=== PATIENT | female | born 1960 | race Caucasian/White ===

== ENCOUNTER 2018-04-30 12:08 | Emergency (ER) | payer BC, SELFPAY ==
[2018-04-30 12:09] VITALS: BP 165/95; PULSE 100; RESP 16; TEMP 37.1; O2SAT 97; BMI 36.8
--- NOTE | 2018-04-30 12:51 | ED.VISSUMM ---
- ER Visit Summary Date of Service: 04/30/18 Chief Complaint: Back pain History of Present Illness: The patient is a 58 F who presents with back pain. It began about 5 days ago. It is worsened by movement relieved by certain positions. She does note that she was using elliptical the week before. She was seen in urgent care. She had a normal urinalysis there. She states they are looking for infection or blood as a sign a kidney stone. Patient denies any urinary symptoms. No numbness tingling radiation to legs fever abdominal pain urinary retention or fecal incontinence. Physical Examination: Afebrile heart rate 100 vitals otherwise unremarkable Moist mucous membranes Heart regular rate and rhythm Lungs are clear Patient does have some paraspinal lumbar tenderness on the left she has no reproducible midline tenderness Normal strength and sensation of the lower extremities 5 out of 5 dorsiflexion, plantarflexion, extensor hallucis longus, brisk capillary refill, no calf tenderness or soft tissue swelling or edema Test Results: Not indicated Emergency Department Course and Treatment: History and examination are consistent with a lumbosacral strain. I do not see evidence of serious life or limb threatening or acute surgical process such as cauda equina syndrome or epidural abscess. She was advised on supportive care. She was given a prescription for naproxen as well as [place] for as needed for breakthrough pain. She was advised she may benefit from physical therapy. She was advised to follow-up with her primary care physician. She understands to return for new or worsening symptoms. She was discharged. Treatment Plan: [] Disposition: Discharge Impression: Lumbosacral strain This note was generated with [employer] dictation software. It may contain incorrect words, spelling, and punctuation that were not noted in review of the chart prior to signing ED Disposition - Plan for ED Patient: Chief Complaint: Back Referrals: [facility] Doctor,Out of [Primary Care Provider] -
--- NOTE | 2018-04-30 12:54 | ED.DCSUM_ITS ---
- ER Visit Summary Date of Service: 04/30/18 Chief Complaint: Back pain History of Present Illness: The patient is a 58 F who presents with back pain. It began about 5 days ago. It is worsened by movement relieved by certain positions. She does note that she was using elliptical the week before. She was seen in urgent care. She had a normal urinalysis there. She states they are looking for infection or blood as a sign a kidney stone. Patient denies any urinary symptoms. No numbness tingling radiation to legs fever abdominal pain urinary retention or fecal incontinence. Physical Examination: Afebrile heart rate 100 vitals otherwise unremarkable Moist mucous membranes Heart regular rate and rhythm Lungs are clear Patient does have some paraspinal lumbar tenderness on the left she has no reproducible midline tenderness Normal strength and sensation of the lower extremities 5 out of 5 dorsiflexion, plantarflexion, extensor hallucis longus, brisk capillary refill, no calf tenderness or soft tissue swelling or edema Test Results: Not indicated Emergency Department Course and Treatment: History and examination are consistent with a lumbosacral strain. I do not see evidence of serious life or limb threatening or acute surgical process such as cauda equina syndrome or epidural abscess. She was advised on supportive care. She was given a prescription for naproxen as well as [place] for as needed for breakthrough pain. She was advised she may benefit from physical therapy. She was advised to follow-up with her primary care physician. She understands to return for new or worsening symptoms. She was discharged. Treatment Plan: [] Disposition: Discharge Impression: Lumbosacral strain This note was generated with [employer] dictation software. It may contain incorrect words, spelling, and punctuation that were not noted in review of the chart prior to signing ED Disposition - Plan for ED Patient: Chief Complaint: Back Referrals: [facility] Doctor,Out of [Primary Care Provider] -
--- NOTE | 2018-04-30 12:55 | DCINST.ED_ITS ---
ED Disposition - Plan for ED Patient: Chief Complaint: Back Instructions: ED Sprain Strain Lumbar Prescriptions: Hydrocodone Bitart/Apap 5-325 [[place] 5MG-325MG] 1 tab PO Q6H PRN PRN 3 Days #10 tab PRN Reason: Pain Naproxen [Naprosyn] 500 mg PO BID #20 tab Referrals: [facility],Out of [Primary Care Provider] -
== END 2018-04-30 13:14 | disposition home or self-care (01) ==
LOC: ED 12:59
PROVIDERS: Emergency Provider Emergency Medicine
DX: S39.012D Strain of muscle, fascia and tendon of lower back, subsequent encounter (principal); X58.XXXD Exposure to other specified factors, subsequent encounter
CPT/HCPCS: 99282

== ENCOUNTER 2019-03-08 13:04 | Outpatient (RCR) | payer OTHER, SELFPAY | END 2019-04-04 23:59 | LOC: NS 13:04 | DX: E66.9 Obesity, unspecified (principal); Z71.3 Dietary counseling and surveillance | CPT/HCPCS: 97802 ==

== ENCOUNTER 2019-04-27 13:00 | Outpatient (RCR) | payer OTHER, SELFPAY | END 2019-05-05 23:59 | LOC: NS 13:00 | DX: E66.9 Obesity, unspecified (principal); Z71.3 Dietary counseling and surveillance | CPT/HCPCS: 97803 ==

== ENCOUNTER 2019-05-25 12:30 | Outpatient (RCR) | payer OTHER, SELFPAY | END 2019-06-05 23:59 | LOC: NS 12:30 | DX: E66.9 Obesity, unspecified (principal); Z71.3 Dietary counseling and surveillance | CPT/HCPCS: 97803 ==

== ENCOUNTER 2019-06-29 12:17 | Outpatient (RCR) | payer OTHER, SELFPAY | END 2019-07-05 23:59 | LOC: NS 12:17 | DX: E66.9 Obesity, unspecified (principal); Z71.3 Dietary counseling and surveillance | CPT/HCPCS: 97803 ==

== ENCOUNTER 2019-07-20 11:53 | Outpatient (RCR) | payer OTHER, SELFPAY | END 2019-08-05 23:59 | LOC: NS 11:53 | DX: E66.9 Obesity, unspecified (principal); Z71.3 Dietary counseling and surveillance | CPT/HCPCS: 97803 ==

== ENCOUNTER 2019-08-23 13:58 | Outpatient (RCR) | payer OTHER, SELFPAY | END 2019-09-04 23:59 | LOC: NS 13:58 | DX: Z71.3 Dietary counseling and surveillance (principal); E66.9 Obesity, unspecified | CPT/HCPCS: 97803 ==

== ENCOUNTER 2019-08-30 09:30 | Emergency (ER) | payer OTHER, SELFPAY ==
[2019-08-30 09:31] VITALS: BP 162/84; PULSE 96; RESP 20; TEMP 37.1; O2SAT 97; BMI 36.6
--- NOTE | 2019-08-30 09:57 | RAD_ITS ---
STUDY: X-RAY - RIGHT HAND REASON FOR EXAM: Female, 59 years old. TECHNIQUE: 3 view(s) of the hand. COMPARISON: None. FINDINGS: Normal radiocarpal articulation. Normal distal radioulnar joint. Normal visualized carpal bones. Normal carpal articulations Normal carpometacarpal articulation of the thumb. Normal second through fifth carpometacarpal joints. Normal metacarpi. Normal metacarpophalangeal joint of the thumb. Normal interphalangeal joint of the thumb. Normal proximal and distal phalanges of the thumb. Normal metacarpophalangeal joints of the second through fifth fingers. Normal proximal and distal interphalangeal joints of the second through fifth fingers. Normal phalanges of the second through fifth fingers. The soft tissue structures are unremarkable. RAD/Hand Min 3 Views IMPRESSION: Normal x-ray examination of the hand. Electronically Signed: Adam Aaron, at 10:46 EST Tel , Service support ,
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
[2019-08-30] MEDS: Ibuprofen 600 MG Tablet PO (10:28)
[2019-08-30 11:07] VITALS: RESP 18
== END 2019-08-30 11:08 | disposition home or self-care (01) ==
PROVIDERS: Emergency Provider Emergency Medicine
DX: S29.012A Strain of muscle and tendon of back wall of thorax, initial encounter (principal); V43.52XA Car driver injured in collision with other type car in traffic accident, initial encounter; S80.12XA Contusion of left lower leg, initial encounter; S60.221A Contusion of right hand, initial encounter; Z79.899 Other long term (current) drug therapy; E78.5 Hyperlipidemia, unspecified
CPT/HCPCS: 73130; 99284

== ENCOUNTER 2019-10-26 10:00 | Outpatient (RCR) | payer OTHER, SELFPAY | END 2019-11-05 23:59 | LOC: NS 10:00 | DX: Z71.3 Dietary counseling and surveillance (principal); E66.9 Obesity, unspecified | CPT/HCPCS: 97803 ==

== ENCOUNTER 2019-11-23 08:45 | Outpatient (RCR) | payer OTHER, SELFPAY | END 2019-12-04 23:59 | LOC: NS 08:45 | DX: Z71.3 Dietary counseling and surveillance (principal); E66.9 Obesity, unspecified | CPT/HCPCS: 97803 ==

== ENCOUNTER 2019-12-13 08:34 | Outpatient (RCR) | payer OTHER, SELFPAY | END 2020-01-04 23:59 | LOC: NS 08:34 | DX: Z71.3 Dietary counseling and surveillance (principal); E66.9 Obesity, unspecified | CPT/HCPCS: 97803 ==

== ENCOUNTER 2020-04-18 08:24 | Outpatient (RCR) | payer OTHER, SELFPAY | END 2020-05-05 23:59 | LOC: NS 08:24 | DX: Z71.3 Dietary counseling and surveillance (principal); E66.9 Obesity, unspecified | CPT/HCPCS: 97803 ==

== ENCOUNTER 2020-05-16 08:46 | Outpatient (RCR) | payer OTHER, SELFPAY | END 2020-06-05 23:59 | LOC: NS 08:46 | DX: Z71.3 Dietary counseling and surveillance (principal); E66.9 Obesity, unspecified | CPT/HCPCS: 97803 ==

== ENCOUNTER 2020-06-27 10:49 | Outpatient (RCR) | payer OTHER, SELFPAY | END 2020-07-05 23:59 | LOC: NS 10:49 | DX: Z71.3 Dietary counseling and surveillance (principal); E66.9 Obesity, unspecified | CPT/HCPCS: 97803 ==

== ENCOUNTER 2020-08-22 14:30 | Outpatient (RCR) | payer OTHER, SELFPAY | END 2020-09-04 23:59 | LOC: NS 14:30 | DX: Z71.3 Dietary counseling and surveillance (principal); E66.9 Obesity, unspecified | CPT/HCPCS: 97803 ==

== ENCOUNTER 2020-09-19 08:34 | Outpatient (RCR) | payer OTHER, SELFPAY | END 2020-10-05 23:59 | LOC: NS 08:34 | DX: Z71.3 Dietary counseling and surveillance (principal); E66.9 Obesity, unspecified | CPT/HCPCS: 97803 ==

== ENCOUNTER 2020-10-31 18:00 | Outpatient (RCR) | payer SELFPAY ==
[2020-10-17 19:11] VITALS: BMI 35.6
[2020-10-30 16:33] VITALS: BMI 35.4
[2020-10-31 19:30] VITALS: BMI 35.5
== END 2020-11-05 23:59 ==
LOC: NS 18:00
DX: Z71.3 Dietary counseling and surveillance (principal); E66.9 Obesity, unspecified
CPT/HCPCS: G9873; G9891

== ENCOUNTER 2020-11-28 18:00 | Outpatient (RCR) | payer SELFPAY ==
[2020-11-07 19:18] VITALS: BMI 35.4
[2020-11-14 19:19] VITALS: BMI 35.4
[2020-11-21 19:00] VITALS: BMI 35.3
[2020-11-28 19:48] VITALS: BMI 35.2
== END 2020-12-03 23:59 ==
LOC: NS 18:00
DX: Z71.3 Dietary counseling and surveillance (principal); E66.9 Obesity, unspecified
CPT/HCPCS: G9874; G9891

== ENCOUNTER 2020-12-12 18:00 | Outpatient (RCR) | payer SELFPAY ==
[2020-12-12 19:27] VITALS: BMI 35.4
[2020-12-26 19:35] VITALS: BMI 35.5
== END 2021-01-03 23:59 ==
LOC: NS 18:00
DX: Z71.3 Dietary counseling and surveillance (principal); E66.9 Obesity, unspecified
CPT/HCPCS: G9891

== ENCOUNTER 2020-12-14 16:02 | Outpatient (RCR) | payer OTHER, SELFPAY ==
[2020-12-14] MEDS: COVID-19 VACC, MRNA(PFIZER)/PF 30 MCG/0.3 ML SYRINGE IM (17:34)
[2021-01-04] MEDS: COVID-19 VACC, MRNA(PFIZER)/PF 30 MCG/0.3 ML SYRINGE IM (17:28)
== END 2021-03-13 23:59 ==
LOC: IMMUN 16:02
PROVIDERS: PCP Internal Medicine; Visit Provider Family Medicine
DX: Z23 Encounter for immunization (principal)
CPT/HCPCS: 0001A; 0002A; 91300

== ENCOUNTER 2021-01-23 18:00 | Outpatient (RCR) | payer OTHER, SELFPAY ==
[2021-01-10 13:21] VITALS: BMI 35.3
[2021-01-24 20:00] VITALS: BMI 35.6
== END 2021-02-02 23:59 ==
LOC: NS 18:00
PROVIDERS: PCP Internal Medicine
DX: Z71.3 Dietary counseling and surveillance (principal); E66.9 Obesity, unspecified
CPT/HCPCS: G9891

== ENCOUNTER 2021-02-06 18:00 | Outpatient (RCR) | payer OTHER, SELFPAY ==
[2021-02-06 20:24] VITALS: BMI 35.3
== END 2021-03-05 23:59 ==
LOC: NS 18:00
PROVIDERS: PCP Internal Medicine
DX: Z71.3 Dietary counseling and surveillance (principal); E66.9 Obesity, unspecified; Z68.35 Body mass index [BMI] 35.0-35.9, adult
CPT/HCPCS: G9891

== ENCOUNTER 2021-04-03 18:00 | Outpatient (RCR) | payer OTHER, SELFPAY ==
[2021-03-06 19:50] VITALS: BMI 35.4
[2021-03-21 13:34] VITALS: BMI 35.4
[2021-04-03 20:07] VITALS: BMI 35.9
== END 2021-04-04 23:59 ==
LOC: NS 18:00
PROVIDERS: PCP Internal Medicine
DX: Z71.3 Dietary counseling and surveillance (principal); E66.9 Obesity, unspecified; Z68.35 Body mass index [BMI] 35.0-35.9, adult
CPT/HCPCS: G9891

== ENCOUNTER 2021-04-24 18:00 | Outpatient (RCR) | payer OTHER, SELFPAY ==
[2021-04-23 18:40] VITALS: BMI 36.4
[2021-04-24 19:54] VITALS: BMI 36.3
== END 2021-05-05 23:59 ==
LOC: NS 18:00
PROVIDERS: PCP Internal Medicine
DX: Z71.3 Dietary counseling and surveillance (principal); E66.9 Obesity, unspecified; Z68.36 Body mass index [BMI] 36.0-36.9, adult
CPT/HCPCS: G9891

== ENCOUNTER 2021-06-05 18:00 | Outpatient (RCR) | payer OTHER, SELFPAY ==
[2021-05-09 10:02] VITALS: BMI 36.3
[2021-05-23 10:06] VITALS: BMI 36.2
[2021-06-05 19:39] VITALS: BMI 36.2
== END 2021-06-05 23:59 ==
LOC: NS 18:00
PROVIDERS: PCP Internal Medicine
DX: Z71.3 Dietary counseling and surveillance (principal); E66.9 Obesity, unspecified; Z68.36 Body mass index [BMI] 36.0-36.9, adult
CPT/HCPCS: G9891

== ENCOUNTER 2021-07-03 18:00 | Outpatient (RCR) | payer OTHER, SELFPAY ==
[2021-06-06 00:24] VITALS: BMI 36.2
[2021-07-04 13:05] VITALS: BMI 36.8
== END 2021-07-05 23:59 ==
LOC: NS 18:00
PROVIDERS: PCP Internal Medicine
DX: Z71.3 Dietary counseling and surveillance (principal); E66.9 Obesity, unspecified; Z68.36 Body mass index [BMI] 36.0-36.9, adult
CPT/HCPCS: G9891

== ENCOUNTER 2021-07-31 18:00 | Outpatient (RCR) | payer OTHER, SELFPAY ==
[2021-07-06 00:18] VITALS: BMI 36.8
[2021-07-10 11:06] VITALS: BMI 36.8
[2021-07-18 13:06] VITALS: BMI 36.2
== END 2021-08-05 23:59 ==
LOC: NS 18:00
PROVIDERS: PCP Internal Medicine
DX: Z71.3 Dietary counseling and surveillance (principal); E66.9 Obesity, unspecified; Z68.36 Body mass index [BMI] 36.0-36.9, adult
CPT/HCPCS: G9891

== ENCOUNTER 2021-08-28 18:00 | Outpatient (RCR) | payer SELFPAY ==
[2021-08-06 00:15] VITALS: BMI 36.2
[2021-08-07 14:33] VITALS: BMI 36.8
[2021-08-14 19:13] VITALS: BMI 36.9
== END 2021-09-04 23:59 ==
LOC: NS 18:00
PROVIDERS: PCP Internal Medicine
DX: Z71.3 Dietary counseling and surveillance (principal); E66.9 Obesity, unspecified; Z68.36 Body mass index [BMI] 36.0-36.9, adult
CPT/HCPCS: G9891

== ENCOUNTER 2021-09-25 18:00 | Outpatient (RCR) | payer SELFPAY ==
[2021-09-05 00:20] VITALS: BMI 36.9
[2021-09-11 19:30] VITALS: BMI 36.8
== END 2021-10-05 23:59 ==
LOC: NS 18:00
PROVIDERS: PCP Internal Medicine
DX: Z71.3 Dietary counseling and surveillance (principal); E66.9 Obesity, unspecified; Z68.36 Body mass index [BMI] 36.0-36.9, adult
CPT/HCPCS: G9891

== ENCOUNTER 2023-07-29 09:48 | Emergency (ER) | payer OTHER, SELFPAY ==
[2023-07-29 09:49] VITALS: BP 145/112; PULSE 80; RESP 18; TEMP 36.6; O2SAT 99
--- NOTE | 2023-07-29 10:42 | CT_ITS ---
STUDY: CT ABDOMEN AND PELVIS WITH CONTRAST REASON FOR EXAM: Female, 63 years old. RLQ pain. Nausea. Hernia. RADIATION DOSAGE (If Supplied By Facility): CTDIvol = ( 12.10 ) mGy, DLP = ( 1219.18 ) mGycm TECHNIQUE: Transaxial images were obtained from the dome of the diaphragm to the symphysis pubis without oral contrast. IV 100mL Isovue-370 was administered. Sagittal and coronal images were reconstructed. Individualized dose optimization techniques were used for this CT. COMPARISON: None. FINDINGS: Minimal increased linear markings at the lung bases suggestive of bibasilar atelectasis. The visualized portions of the heart are within normal limits. There is decreased attenuation of the liver consistent with steatosis. Gallstones are seen in the neck of the gallbladder. Normal spleen. Normal pancreas. Normal bilateral adrenal glands. Normal right kidney. Normal left kidney. Normal visualized stomach. Normal small intestine. Normal colon. The appendix is visualized and appears normal. There is scattered atherosclerotic calcification of the abdominal aorta, without a demonstrated aneurysm. Normal inferior vena cava. Normal retroperitoneum. Normal urinary bladder. Enlarged heterogeneous appearance of the uterus suggestive of a fibroid uterus. There is a small umbilical hernia containing fat. There are degenerative changes of the visualized lumbar spine. Dextroscoliosis. CT/Abdomen/Pelvis W IV Cont ONLY IMPRESSION: Gallstones in the neck of the gallbladder. Fatty infiltration of the liver. Heterogeneous enlargement of the uterus suggestive of fibroid change. Electronically Signed: Storm Hernandez MD at 13:33 EDT ,
--- NOTE | 2023-07-29 10:43 | EDS_ITS ---
HPI HPI - GI History of Present Illness Chief Complaint: Abd Pain Narrative Narrative: 63-year-old female past medical history of umbilical hernia, presents with right lower quadrant to pelvic pain that began this morning. They note that she has been performing more activity and bending, which they think may have aggravated her hernia. She was nauseated this morning when her symptoms began at around 6:00, 4-1/2 hours ago. She has not vomited, and has had 2 bowel movements today. She denies any dysuria or hematuria. Her pain is worse with sitting up and standing. She relates history that a few years ago, she talked to Dr. Larson with [facility] surgery about possible hernia repair of her umbilical hernia, but they decided against it because it was during COVID, and more of an elective surgery. She denies any vaginal discharge or bleeding. PFSH PFSH Home Medications rosuvastatin 5 mg tablet 5 mg PO MOWEFR 04/30/18 [History Last Taken Unknown] Allergy/AdvReac Type Severity Reaction Status Date / Time No Known Allergies Allergy Verified 07/29/23 09:51 Social History Smoking Status: Never smoker ROS ROS ED ROS Narrative Constitutional: No fever, no chills. HEENT: No sore throat. No neck pain. No loss of vision. No rhinorrhea. Cardiovascular: No chest pain. No palpitations. No pedal edema. Respiratory: No cough, no shortness of breath. Abdominal: Right lower quadrant to right pelvic abdominal pain. Positive nausea. No vomiting. Problems with bowel movements, no diarrhea. Genitourinary: No dysuria. No hematuria. Musculoskeletal: No myalgias. No arthralgias. Neurologic: No headaches. No dizziness. No lightheadedness. Skin: No rash. No change in color. Psychiatric: No depression. No anxiety. EXAM Physical Exam Narrative Exam Narrative: Afebrile. Vital signs noted. HEENT: Normocephalic. Atraumatic. PERRL, EOMI. Neck soft and supple. No point tenderness or step off. Cardiovascular: Regular rate and rhythm. No murmurs, rubs, or gallops appreciated. Respiratory: No tachypnea. Lungs clear to auscultation bilaterally. Gastrointestinal: Abdomen soft, mild tenderness to palpation in right lower quadrant to right pelvis with normoactive bowel sounds. No rebound or guarding. Umbilicus hernia, soft, easily reduced, but then immediately returns. Neurological: Awake. Alert. Nonfocal, nonlateralizing. Skin: No rash. Normal color. No pallor. Musculoskeletal: No pedal edema. Full range of motion extremities. Const Vital Signs: 07/29/23 09:49 07/29/23 12:24 07/29/23 13:53 Temperature 97.9 F Temperature Source Temporal Pulse Rate 80 52 L 56 L Respiratory Rate 18 18 18 Blood Pressure 145/112 H 136/47 H 137/63 H Blood Pressure Mean 123 76 87 Pulse Ox 99 98 96 Oxygen Delivery Method Room Air Room Air MDM MDM MDM Narrative Medical decision making narrative: The differential diagnosis is appendicitis versus incarcerated hernia versus ovarian cyst versus inguinal hernia. However, she has no pain with movement of her right leg and there is no large mass palpated in the inguinal canal. She was administered morphine and ondansetron and a bolus of normal saline 1 L intravenously. I do feel CT imaging is indicated. I will obtain a CBC, CMP, and urinalysis as well to look for any UTI or sign of infection. I reviewed her laboratory work from today and she has a normal white count of 6.3, hemoglobin normal at 14.0, the 2.7, platelet count normal at 270. Review of her CMP shows chloride slightly elevated at 111 which I think is nonspecific, normal sodium of 141, potassium normal at 4.3, glucose is appropriately elevated at 118 with an anion gap low at 2. LFTs are normal, alk phos is normal at 70, AST 19 and ALT 36. Urinalysis is negative for infection. I do not feel antibiotics are indicated. I reviewed the CT imaging and the radiology report for the CT of the abdomen pelvis with IV contrast. She does have Regenia's thickening of the uterus consistent with fibrous disease, and gallstones in the neck of the bladder. However, I have no concern for cholecystitis or gallstone pancreatitis as she is not having any vomiting, and she has no pain in the right upper quadrant. All of her pain is lower. I did see the umbilical hernia which contained fat on her CT imaging. For analgesia, she excepted 2 mg of morphine and showed improvement. Suspect that her IV may have infiltrated so it was removed, and she declined further analgesics. As far as oral analgesics are concerned, she states she prefers to take Motrin and Tylenol alternating. Additionally, she declined pelvic examination and/or ultrasound, and there was no remark of an enlarged ovary on the right. The appendix was visualized and is normal. 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 Additionally, she feels well enough to be discharged and I do not feel she requires observation at this time. Return instructions to the emergency department were reviewed. Disposition is discharged home in stable condition. History & Record Review Discussion w/independent historian: Patient and Family Additional record(s) reviewed:: Prior ED visit and Prior labs Lab Data Attestation: I reviewed the patient's lab results. Labs: Laboratory Results - last 24 hr 07/29/23 07/29/23 11:40 11:52 WBC 6.3 RBC 4.53 Hgb 14.0 Hct 42.7 MCV 94.3 MCH 30.9 MCHC 32.8 RDW Std Deviation 46.8 H RDW Coeff of Baudilio 13.5 Plt Count 270 MPV 10.3 Immature Gran % (Auto) 0.500 Neut % (Auto) 70.0 Lymph % (Auto) 21.0 [place] % (Auto) 6.1 Eos % (Auto) 1.6 Baso % (Auto) 0.8 Absolute Neuts (auto) 4.4 Absolute Lymphs (auto) 1.32 Nucleated RBC % 0 Sodium 141 Potassium 4.3 Chloride 111 H Carbon Dioxide 28.0 Anion Gap 2 L BUN 15 Creatinine 0.76 Estim Creat Clear Calc 70.93 Est GFR (MDRD) Af Amer 99 Est GFR (MDRD) Non-Af 82 BUN/Creatinine Ratio 19.8 Glucose 118 H Calcium 8.9 Total Bilirubin 0.40 AST 19 ALT 36 Alkaline Phosphatase 70 Total Protein 7.2 Albumin 3.9 Globulin 3.3 Albumin/Globulin Ratio 1.2 Urine Color Yellow Urine Clarity Clear Urine pH 7.0 Ur Specific [place] 1.015 Urine Protein 15 H Urine Glucose (UA) Normal Urine Ketones Negative Urine Occult Blood Negative Urine Nitrite Negative Urine Bilirubin Negative Urine Urobilinogen Normal Ur Leukocyte Esterase 25 H Urine RBC 0 SEEN Urine WBC 0-5 SEEN Ur Squamous Epith Cells 5-10 SEEN Urine Bacteria 1+ Urine Mucus 0 SEEN Radiography Diagnostic Testing: Clinical Impression(s) from Imaging Studies Abdomen/Pelvis CT 07/29/23 10:42 IMPRESSION: Gallstones in the neck of the gallbladder. Fatty infiltration of the liver. Heterogeneous enlargement of the uterus suggestive of fibroid change. Electronically Signed: Storm Hernandez MD at 13:33 EDT , Discharge Plan Triage Chief Complaint: Abd Pain ED Provider: Konrad Arnold Dx/Rx/DC Orders Clinical Impression: Uterine fibroid, Gallstones, Abdominal pain, Nausea Instructions: ED Abdominal Pain Unkn Cause Fem, ED Pain, Acute, Uncertain Cause, ED Pelvic Pain, Unknown Cause Prescriptions: No Action rosuvastatin 5 MG tablet 5 mg PO MOWEFR Patient Comments: take 1 tablet by mouth once daily Primary Care Provider: KONRAD MENDEZ Referrals: KONRAD MENDEZ [employer] [Primary Care Provider] - Activity Restrictions/Additional Instructions: Follow-up with an PATIENT RELATIONS SPECIALIST regarding your uterine fibroids. You may alternate between canal and Advil as needed for pain. Return with increasing pain, fever, vomiting, new or worsening symptoms. Disposition Disposition: Home, Self Care Discharge Date/Time: 07/29/23 13:59
[2023-07-29 10:53] VITALS: BMI 39.7
[2023-07-29 11:52] LABS: Absolute Lymphocyte Count 1.32 X10^3/uL (0.83-4.51); Absolute Neutrophil Count 4.4 X10^3/uL (2.0-7.7); Basophil# 0.05 X10^3/uL; Basophil% 0.8 % (0-1); Eosinophils% 1.6 % (0-5); Hematocrit 42.7 % (37-47); Lymphocyte # 1.32 X10^3/ul (0.83-4.51); Mean Corp Hgb Conc 32.8 g/dL (32-36); Mean Corpuscular Hgb 30.9 pg (27.0-32.0); Mean Corpuscular Volume 94.3 fL (81-99); Mean Platelet Vol. 10.3 fl (6.2-12.0); Monocyte# 0.38 X10^3/uL; Monocyte% 6.1 % (0-10); NRBC Flagged by Analyzer 0 % (0-5); Platelet Count 270 K/mm3 (150-450); RBC Distribution Width CV 13.5 % (11.6-14.6); RBC Distribution Width SD 46.8 fl (35.1-43.9); Red Blood Count 4.53 M/mm3 (4.2-5.4); White Blood Count 6.3 K/mm3 (4.4-11.0)
[2023-07-29] MEDS: Ondansetron 4 MG/2 ML Vial IV (11:53)
[2023-07-29] MEDS: 0.9% Normal Saline (1000mL) 1,000 ML 1000 ML IV (11:53)
--- NOTE | 2023-07-29 11:57 | NURSING ---
NO LIVING WILL, POWER OF CASE WORK AIDE
[2023-07-29 11:58] LABS: Mucous, Urine 0 SEEN /hpf (<or=2+); Red Blood Cells-Urine 0 SEEN /hpf (0-5)
[2023-07-29] MEDS: Morphine 2 MG/ML Syringe IV (12:06)
[2023-07-29 12:07] LABS: Color, Urine Yellow (Yellow); Glucose, Dipstick Normal (Normal); Ketone-Dipstick Negative (Negative); Leukocyte Esterase-Dipstick 25 /ul (Negative); Nitrite-Dipstick Negative (Negative); Occult Blood-Urine Negative /ul (Negative); Protein-Dipstick 15 mg/dl (Negative); Specific Gravity, Urine 1.015 (1.002-1.030); Urine Bilirubin Dipstick Negative (Negative); Urine Clarity Clear (Clear); Urine Urobilinogen Normal (Normal)
[2023-07-29 12:12] LABS: ALB/GLOB Ratio 1.2 RATIO (0.9-2.4); AST(SGOT) 19 U/L (15-37); Alanine Aminotransfer ALT/SGPT 36 U/L (13-56); Albumin, Serum 3.9 g/dL (3.2-5.0); Alkaline Phosphatase 70 U/L (45-117); Anion Gap 2 (5-15); BUN 15 mg/dL (7-18); BUN/Creat Ratio 19.8 RATIO (10-20); Calcium,Total 8.9 mg/dL (8.5-10.1); Chloride 111 mmol/L (98-107); Creatinine, Serum 0.76 mg/dL (0.55-1.02); EST Glomerular Filtration Rate 82 mL/min (>60); Est Glom Filt Rate - Afr Amer 99 mL/min (>60); Estimated Creatinine Clearance 70.93 ml/min; Globulin 3.3 g/dL (2.2-4.2); Glucose 118 mg/dL (74-106); Potassium 4.3 mmol/L (3.5-5.1); Protein, Total 7.2 g/dL (6.4-8.2); Sodium Level 141 mmol/L (136-145)
[2023-07-29 12:14] LABS: Bacteria 1+ /hpf (None Seen); Squamous Epithelial Cells - UA 5-10 SEEN /hpf (5-10); White Blood Cells 0-5 SEEN /hpf (0-5)
[2023-07-29 12:24] VITALS: BP 136/47; PULSE 52; RESP 18; O2SAT 98
--- NOTE | 2023-07-29 13:42 | ED.RN ---
Addendum entered by Michaela Cueva 07/29/23 13:45: DR. AMADOR AWARE PT HAD CONTRAST PRIOR TO SWELLING OF IV. Original Note: PT ARRIVES BACK FROM CT SCAN. PER RADIOLOGY, PT IV SWOLLEN AFTER CONTRAST WAS GIVEN. RADIOLOGY DID NOT CONTINUE FLUIDS. THIS RN ASSESSED IV. IV SWOLLEN, PT DENIES PAIN AT SITE. IV DISCONTINUED BY Tyson WAGNER RN. PER DR. AMADOR, OKAY TO WAIT TO START ANOTHER IV UNTIL ORDERED.
[2023-07-29 13:53] VITALS: BP 137/63; PULSE 56; RESP 18; O2SAT 96
== END 2023-07-29 13:59 | disposition home or self-care (01) ==
PROVIDERS: Emergency Provider Emergency Medicine; PCP Nurse Practitioner; Visit Provider Emergency Medicine
DX: D25.9 Leiomyoma of uterus, unspecified (principal); K80.20 Calculus of gallbladder without cholecystitis without obstruction; R10.31 Right lower quadrant pain; Z79.899 Other long term (current) drug therapy
CPT/HCPCS: 74177; 80053; 81001; 85025; 96361; 96374; 96375; 99283; J7030; Q9967; A4216; J2405